=== PATIENT | female | born 1945 | race Caucasian/White ===

== ENCOUNTER 2017-04-27 05:37 | Day surgery (SDC) | payer MEDICARE, OTHER ==
[2017-04-27] MEDS ORDERED: TROP 1%/CYCLOPEN 1%/PHENYL 2% DROPS OPHTH ONE (06:54)
[2017-04-27] MEDS: TOBRAMYCIN SULF 0.3 % OPHT SOL 1 DROP RIGHT_EYE ONE ×2 (06:54→08:28)
[2017-04-27] MEDS: PROPARACAINE 0.5% OPHTH SOL 15 ML BTTL ONE ×3 (06:54→08:10)
[2017-04-27] MEDS ORDERED: MIDAZOLAM INJ 5 MG/5 ML VIAL ONE (08:02)
[2017-04-27] MEDS ORDERED: LIDOCAINE 1% PF 2 ML AMP INJ ONE (08:15)
[2017-04-27] MEDS ORDERED: BRIMONIDINE 0.2% OPHTH DROPS RIGHT_EYE ONE (08:28)
[2017-04-27] MEDS ORDERED: DEXAMETHASONE 0.1% OPHTH SOL 1 DROP RIGHT_EYE ONE (08:28)
[2017-04-27 14:14] VITALS: BP 134/72; TEMP 98.3; O2SAT 100
== END 2017-04-27 09:30 | disposition home or self-care (01) ==
LOC: AMB 05:37
PROVIDERS: ATTEND Ophthalmology
DX: H25.11 Age-related nuclear cataract, right eye (principal)
CPT/HCPCS: 66984; J2250

== ENCOUNTER → 2019-02-16 | Outpatient (CLI) | payer MEDICARE | LOC: LAB.O 14:53 | PROVIDERS: ATTEND Nurse Practitioner Family | DX: R39.82 Chronic bladder pain (principal); Z90.710 Acquired absence of both cervix and uterus ==